=== PATIENT | male | born 1950 | race Caucasian/White ===

== ENCOUNTER 2021-11-17 15:48 | Emergency (ER) | payer OTHER, SELFPAY ==
[2021-11-17] VITALS (11 sets, daily range): BP systolic 115–125; BP diastolic 61–71; PULSE 80–86; RESP 12–44; TEMP 37.1; O2SAT 81–95; BMI 83.2; BMI 39.7
--- NOTE | 2021-11-17 16:14 | EKG12_ITS ---
Test Reason : SOB Blood Pressure : / mmHG Vent. Rate : 083 BPM Atrial Rate : 083 BPM P-R Int : 154 ms QRS Dur : 088 ms QT Int : 390 ms P-R-T Axes : 041 048 086 degrees QTc Int : 458 ms Normal sinus rhythm ST & T wave abnormality, consider inferolateral ischemia Abnormal ECG Confirmed by KARISHMA JAMES, IVANA ([id number]), sports editor LANETTE OROZCO ([id number]) on 11/19/2021 1:16:57 PM Referred By: CLAY DAWN Confirmed By:IVANA SCHWARZ MD
--- NOTE | 2021-11-17 16:15 | RAD_ITS ---
STUDY: X-RAY CHEST REASON FOR EXAM: Male, 71 years old. chest pain TECHNIQUE: Frontal view COMPARISON: None. FINDINGS: There is moderate right perihilar alveolar infiltrate extending throughout the right middle lobe and silhouetting the right heart border. There are subtle linear densities in the right costophrenic sulcus and in the lower left lung question Delores B lines related to early or mild CHF. There is no evidence of pleural effusion.. Mild cardiomegaly Normal mediastinum and yancy. Normal visualized pulmonary arteries. Normal visualized aortic arch and descending thoracic aorta. Normal visualized thoracic spine. Normal visualized ribs, clavicles, and shoulders. There is no demonstrated abnormality of the visualized soft tissue structures of the upper abdomen. RAD/Chest 1 View (Portable) IMPRESSION: Extensive pneumonitis right middle lobe. Given its alveolar appearance this is likely due to bacterial pneumonitis. Mild cardiomegaly. Subtle horizontally oriented linear densities right lateral costophrenic angle and left lower lung. Question Delores B lines related to early or mild CHF. Electronically Signed: Erik Salomon MD, ZAIDA at 16:50 EDT ,
--- NOTE | 2021-11-17 16:15 | ED.VIS.DYS ---
HPI History of Present Illness Chief Complaint: Shortness of Breath Narrative Narrative: 71-year-old male with history of hypertension, hyperlipidemia, diabetes presenting with shortness of breath and cough. Apparently this started yesterday. patient admits to recent NSTEMI and was admitted to [facility]. He states he had a cardiac catheterization there and did not require any stents. He states that he has had some aching on the left side of his chest sporadically since then. Patient states that this occurred at the beginning of September. Patient has been home since then. He expresses he has difficulty sleeping due to shortness of breath and cough. He has dyspnea on exertion. He is sleeping in a chair in the upright position. He has bilateral lower extremity edema. He denies any history of congestive heart failure. [facility] Medical History Anemia CAD (coronary artery disease) Diabetes mellitus, type 2 Gout Hyperlipidemia Hypertension Non-STEMI (non-ST elevated myocardial infarction) Stage 3 chronic kidney disease Home Medications allopurinol 100 mg PO DAILY 11/17/21 [History Last Taken Unknown] amlodipine 10 mg PO DAILY 11/17/21 [History Last Taken Unknown] aspirin [Aspirin Low Dose] 81 mg PO DAILY 11/17/21 [History Last Taken Unknown] atorvastatin 80 mg PO QHS 11/17/21 [History Last Taken Unknown] carvedilol 25 mg PO BID 11/17/21 [History Last Taken Unknown] cholecalciferol (vitamin D3) [Vitamin D3] 50 mcg PO DAILY 11/17/21 [History Last Taken Unknown] docusate sodium 100 mg PO BID 11/17/21 [History Last Taken Unknown] hydralazine 50 mg PO TID 11/17/21 [History Last Taken Unknown] Allergy/AdvReac Type Severity Reaction Status Date / Time No Known Allergies Allergy Verified 11/17/21 15:51 Social History Smoking Status: Never smoker ROS ROS ED Constitutional Constitutional ED: Denies chills or fever(s) Eyes Eyes: Denies blurry vision or diplopia ENT ENT ED: Denies rhinorrhea or sore throat Cardiovascular Cardiovascular: Denies chest pain Respiratory/Chest Respiratory/Chest: Reports cough, dyspnea and dyspnea on exertion Gastrointestinal Gastrointestinal: Denies abdominal pain, nausea or vomiting Genitourinary Genitourinary ED: Denies dysuria Musculoskeletal Musculoskeletal: Denies arthralgias or myalgias Integumentary Denies rash Neurologic Neurologic: Denies headache(s) Psychiatric Psychiatric: Denies anxiety or depression Endocrine Endocrinology: Denies polydipsia or polyuria EXAM Physical Exam Const Vital Signs: 11/17/21 15:49 11/17/21 15:52 11/17/21 15:58 Temperature 98.7 F Temperature Source Temporal Pulse Rate 85 Respiratory Rate 20 H Respiratory Effort Short of Breath Respiratory Pattern Tachypnea Blood Pressure 115/61 Blood Pressure Mean 79 Pulse Ox 88 88 Oxygen Delivery Method Room Air Nasal Cannula Room Air Oxygen Flow Rate (L/min) 5 Fraction of Inspired Oxygen (FIO2) 11/17/21 16:10 11/17/21 16:14 11/17/21 16:15 Temperature Temperature Source Pulse Rate Respiratory Rate 30 H Respiratory Effort Respiratory Pattern Blood Pressure Blood Pressure Mean Pulse Ox 90 95 94 Oxygen Delivery Method Nasal Cannula Non-Rebreather Non-Rebreather Oxygen Flow Rate (L/min) 6 15 15 Fraction of Inspired Oxygen (FIO2) 11/17/21 16:28 11/17/21 16:48 11/17/21 17:00 Temperature Temperature Source Pulse Rate 86 83 Respiratory Rate 44 H Respiratory Effort Respiratory Pattern Blood Pressure 115/69 Blood Pressure Mean Pulse Ox 90 95 Oxygen Delivery Method Non-Rebreather Oxygen Flow Rate (L/min) 15 Fraction of Inspired Oxygen (FIO2) 60 11/17/21 17:44 11/17/21 17:50 11/17/21 18:17 Temperature Temperature Source Pulse Rate 81 80 Respiratory Rate 42 H 18 Respiratory Effort Respiratory Pattern Blood Pressure 125/71 H 116/71 Blood Pressure Mean 89 86 Pulse Ox 90 95 Oxygen Delivery Method Bi-pap Bi-pap Oxygen Flow Rate (L/min) Fraction of Inspired Oxygen (FIO2) 70 Positive well nourished General Appearance ED: NAD HEENT Reports moist mucous membranes atraumatic Eyes PERRL and EOMs intact bilaterally Neck no lymphadenopathy and supple Resp Auscultation: rales diffuse and rhonchi throughout GI non-tender Palpation: soft Back/Spine normal to inspection Extremity General Extremety ED: Yes edema; Negative for tenderness General Extremity: edema Neuro oriented x3 and CN's II-XII intact bilaterally Sensorium / Orientation: alert Psych mental status grossly normal Thought Process: normal thought process Skin Lesions: no lesions Rashes: no rashes MDM MDM MDM Narrative Medical decision making narrative: 71-year-old male with recent history of NSTEMI in early: Was seen at [facility]. He had a cardiac catheterization while he was there which showed LMCA with mild diffuse disease, LAD mild to moderate diffusely diseased, diagonal 1 with severe diffusely diseased, diagonal 2 moderate to severe diffusely diseased, left circumflex mild diffuse tenderness and is RCA proximal is occluded with [id number] collaterals. The patient reports that they were unable to place any stents because the vessels were too small. It was noted that his was 1.19 on admission and then had gone up to 1.54 412.22. Subsequently this was checked on 10/07/2021 and it was 1.26. The patient's hemoglobin on 10/01/2021 was 9.3 and today is 10.1. Platelets are normal under 7. Patient has a leukocytosis of 14.6 and reports a cough and shortness of breath as well as chills. On exam he does have a rales and rhonchi without wheezing. This appears to be worse on exam on the left however on his chest x-ray it does appear to be he has mild to moderate CHF and some Grace B lines on my interpretation. There is also a right middle lobe pneumonitis and the radiologist read this is likely bacterial. Because he is tachypneic and hypoxic I did order blood cultures, urine, urine cultures which are pending currently. Patient was started on vancomycin and Zosyn to cover him for hospital-acquired pneumonia. In addition to this he was given 40 mg of IV Lasix and Nitropaste and placed on BiPAP because his oxygen kept dropping to the low 80s even on 15 L. He feels improved on BiPAP and actually his cough is actually improved. The patient's EKG on my interpretation shows a sinus rhythm with a ventricular of [address]-T wave changes. There is no comparison EKG as the patient has not been here before. I spoke with Dr. Baeza who felt the patient was very complex and would likely need to be transported back to [facility]. He did recommend a heparin drip. Patient also given aspirin 324 mg. I spoke with the extractor machine operator at [facility]. He discussed the case with his attending Dr. Mijares who accepted admission to the CICU. Patient reevaluated at 1830 and is doing well. [facility] to transport and so there is a delay in care. We are currently trying to outsource another ambulance. Patient reevaluated at 1900. He is currently leaving the emergency room towards [facility]. His BNP did come back at 1094. He was already given Lasix. Patient's lactic acid 2.2. Patient stable for transport. Impression: 1. New onset CHF 2. Hospital-acquired pneumonia 3. Sepsis 4. NSTEMI 5. FAYE Lab Data Attestation: I reviewed the patient's lab results. Labs: Laboratory Results - last 24 hr 11/17/21 11/17/21 11/17/21 16:05 16:05 16:05 WBC 14.6 H RBC 3.13 L Hgb 10.1 L Hct 30.0 L MCV 95.8 H MCH 32.3 H MCHC 33.7 RDW Std Deviation 49.9 H RDW Coeff of Avila 14.5 Plt Count 307 MPV 10.7 Immature Gran % (Auto) 0.500 Neut % (Auto) 83.4 H Lymph % (Auto) 3.7 L [place] % (Auto) 12.2 H Eos % (Auto) 0.0 Baso % (Auto) 0.2 Absolute Neuts (auto) 12.1 H Absolute Lymphs (auto) 0.54 L Nucleated RBC % 0 Differential Comment SEE COMMENTS Diff Path Review May foll Platelet Estimate ADEQUATE RBC Morphology N CHROM Anisocytosis 1+ Macrocytosis 1+ PT INR APTT Sodium 140 Potassium 4.1 Chloride 109 H Carbon Dioxide 21.0 Anion Gap 10 BUN 35 H Creatinine 1.66 H Estim Creat Clear Calc 34.67 Est GFR (MDRD) Af Amer 53 L Est GFR (MDRD) Non-Af 44 L BUN/Creatinine Ratio 21.1 H Glucose 173 H Lactic Acid Calcium 9.6 Troponin I High Sens 7114 H* B-Natriuretic Peptide 1094.7 H TSH 0.77 Urine Color Urine Clarity Urine pH Ur Specific [place] Urine Protein Urine Glucose (UA) Urine Ketones Urine Occult Blood Urine Nitrite Urine Bilirubin Urine Urobilinogen Ur Leukocyte Esterase Urine RBC Urine WBC Ur Squamous Epith Cells Urine Bacteria Urine Mucus 11/17/21 11/17/21 11/17/21 17:25 18:30 Unknown WBC RBC Hgb Hct MCV MCH MCHC RDW Std Deviation RDW Coeff of [place]ila Plt Count MPV Immature Gran % (Auto) Neut % (Auto) Lymph % (Auto) [place] % (Auto) Eos % (Auto) Baso % (Auto) Absolute Neuts (auto) Absolute Lymphs (auto) Nucleated RBC % Differential Comment Diff Path Review Platelet Estimate RBC Morphology Anisocytosis Macrocytosis PT 15.3 H INR 1.2 APTT 34.6 Sodium Potassium Chloride Carbon Dioxide Anion Gap BUN Creatinine Estim Creat Clear Calc Est GFR (MDRD) Af Amer Est GFR (MDRD) Non-Af BUN/Creatinine Ratio Glucose Lactic Acid 2.2 H* Calcium Troponin I High Sens B-Natriuretic Peptide TSH Urine Color Straw Urine Clarity Clear Urine pH 6.0 Ur Specific [place] 1.010 Urine Protein Negative Urine Glucose (UA) Normal Urine Ketones Negative Urine Occult Blood Negative Urine Nitrite Negative Urine Bilirubin Negative Urine Urobilinogen Normal Ur Leukocyte Esterase Negative Urine RBC 0 SEEN Urine WBC 0 SEEN Ur Squamous Epith Cells 0 SEEN Urine Bacteria 0 SEEN Urine Mucus 0 SEEN Radiography Diagnostic Testing: Clinical Impression(s) from Imaging Studies Chest X-Ray 11/17/21 16:15 IMPRESSION: Extensive pneumonitis right middle lobe. Given its alveolar appearance this is likely due to bacterial pneumonitis. Mild cardiomegaly. Subtle horizontally oriented linear densities right lateral costophrenic angle and left lower lung. Question Delores B lines related to early or mild CHF. Electronically Signed: Erik Salomon MD, ZAIDA at 16:50 EDT Reading Location ID and State: [facility] / ID Tel , Service support , Discharge Plan Triage Chief Complaint: Shortness of Breath ED Provider: Harsha Garcia Dx/Rx/DC Orders Prescriptions: No Action atorvastatin 80 mg tablet 80 mg PO QHS RF: 0 carvedilol 25 mg tablet 25 mg PO BID RF: 0 allopurinol 100 mg tablet 100 mg PO DAILY RF: 0 aspirin [Aspirin Low Dose] 81 mg tablet,delayed release (DR/EC) 81 mg PO DAILY RF: 0 amlodipine 10 mg tablet 10 mg PO DAILY RF: 0 docusate sodium 100 mg capsule 100 mg PO BID RF: 0 hydralazine 50 mg Tablet 50 mg PO TID RF: 0 cholecalciferol (vitamin D3) [Vitamin D3] 50 mcg (2,000 unit) Tablet 50 mcg PO DAILY RF: 0 Primary Care Provider: Armand Rivers
[2021-11-17] MEDS: Nitroglycerin Oint 1 INCH PACKET TD (16:28)
[2021-11-17] MEDS: Furosemide 40 MG/4 ML Vial IV (16:28)
[2021-11-17 16:42] LABS: Absolute Lymphocyte Count 0.54 X10^3/uL (0.83-4.51); Absolute Neutrophil Count 12.1 X10^3/uL (2.0-7.7); Basophil# 0.03 X10^3/uL; Basophil% 0.2 % (0-1); Hemoglobin 10.1 g/dL (13.0-16.5); Lymphocyte # 0.54 X10^3/ul (0.83-4.51); Lymphocyte % 3.7 % (19-41); Mean Corp Hgb Conc 33.7 g/dL (32-36); Mean Corpuscular Hgb 32.3 pg (27.0-32.0); Mean Corpuscular Volume 95.8 fL (80-94); Mean Platelet Vol. 10.7 fl (6.2-12.0); Monocyte# 1.77 X10^3/uL; Monocyte% 12.2 % (0-10); NRBC Flagged by Analyzer 0 % (0-5); Neutrophil # 12.14 X10^3/uL (2.7-7.7); Neutrophil % 83.4 % (47-70); POSITIVE DIFFERENTIAL YES; Platelet Count 307 K/mm3 (150-450); RBC Distribution Width CV 14.5 % (11.6-14.6); RBC Distribution Width SD 49.9 fl (35.1-43.9); Red Blood Count 3.13 M/mm3 (4.6-6.2); White Blood Count 14.6 K/mm3 (4.4-11.0)
[2021-11-17 16:46] LABS: Differential Indicated SCAN CRITERIA MET
[2021-11-17 16:53] LABS: Anion Gap 10 (5-15); BUN 35 mg/dL (7-18); BUN/Creat Ratio 21.1 RATIO (10-20); Calcium,Total 9.6 mg/dL (8.5-10.1); Chloride 109 mmol/L (98-107); Creatinine, Serum 1.66 mg/dL (0.70-1.30); EST Glomerular Filtration Rate 44 mL/min (>60); Est Glom Filt Rate - Afr Amer 53 mL/min (>60); Estimated Creatinine Clearance 34.67 ml/min; Glucose 173 mg/dL (74-106); Potassium 4.1 mmol/L (3.5-5.1); Sodium Level 140 mmol/L (136-145); Thyroid Stim Hormone (TSH) 0.77 uIU/mL (0.358-3.74); Troponin-I HS (w/2H Reflex) 7114 pg/mL (3.0-78.0)
[2021-11-17 17:16] LABS: Differential Comment SEE COMMENTS
[2021-11-17 17:17] LABS: Platelet Estimate ADEQUATE (ADEQ)
[2021-11-17 17:19] LABS: Anisocytosis 1+; Macrocytosis 1+; Red Cell Morphology N CHROM NORMAL (NORM C&C)
--- NOTE | 2021-11-17 17:19 | NURSING ---
CALLED [facility] FOR TRANSFER. TALKED TO HOOD
--- NOTE | 2021-11-17 17:25 | NURSING ---
NO OLD EKGS
[2021-11-17] MEDS: Aspirin 81 MG TAB.CHEW 324 MG PO (17:35)
--- NOTE | 2021-11-17 17:37 | NURSING ---
[facility] CARDIOLOGY FOR DR DAWN
[2021-11-17 17:49] LABS: International Normalized Ratio 1.2; Prothrombin Time (Protime)PT. 15.3 SECONDS (11.7-14.9)
[2021-11-17 17:50] LABS: Partial Thromboplast Time 34.6 Seconds (24.1-36.2)
[2021-11-17] MEDS: HEPARIN/D5w 25,000 UNITS 25,000 UNITS/250 ML IV.SOLN. 15 UNITS CONT INF (18:09)
--- NOTE | 2021-11-17 18:15 | NURSING ---
[facility] NURSE TO NURSE [phone]
[2021-11-17 18:20] LABS: Reflex Troponin-HS? (from REC) Y
[2021-11-17 18:36] LABS: BNP,B-Type NATRIURETIC PEPTIDE 1094.7 pg/mL (0-100)
[2021-11-17 18:44] LABS: Bacteria 0 SEEN /hpf (None Seen); Mucous, Urine 0 SEEN /hpf (<or=2+); Red Blood Cells-Urine 0 SEEN /hpf (0-5); Squamous Epithelial Cells - UA 0 SEEN /hpf (0-5); White Blood Cells 0 SEEN /hpf (0-5)
[2021-11-17 18:46] LABS: Color, Urine Straw (Yellow); Glucose, Dipstick Normal (Normal); Ketone-Dipstick Negative (Negative); Leukocyte Esterase-Dipstick Negative /ul (Negative); Nitrite-Dipstick Negative (Negative); Occult Blood-Urine Negative /ul (Negative); Protein-Dipstick Negative (Negative); Urine Bilirubin Dipstick Negative (Negative); Urine Clarity Clear (Clear); Urine Urobilinogen Normal (Normal)
--- NOTE | 2021-11-17 19:00 | ED.RN ---
notified Dr Garcia of critical Lactic of 2.2
[2021-11-17 19:11] LABS: Troponin-I HS 7085 pg/mL (3.0-78.0)
[2021-11-17 21:32] LABS: Reflex Lactate? Y
[2021-11-17 23:16] LABS: Lactic Acid 2.2 mmol/L (0.4-1.9)
[2021-11-19 11:49] LABS: Pathologist Review Reviewed
== END 2021-11-17 19:30 | disposition short-term general hospital (02) ==
PROVIDERS: Emergency Provider Student in an Organized Health Care Education/Training Program; PCP Internal Medicine; Visit Provider Student in an Organized Health Care Education/Training Program
DX: A41.9 Sepsis, unspecified organism (principal); N17.9 Acute kidney failure, unspecified; I50.9 Heart failure, unspecified; E11.22 Type 2 diabetes mellitus with diabetic chronic kidney disease; N18.30 Chronic kidney disease, stage 3 unspecified; J18.9 Pneumonia, unspecified organism; E78.5 Hyperlipidemia, unspecified; I12.9 Hypertensive chronic kidney disease with stage 1 through stage 4 chronic kidney disease, or unspecified chronic kidney disease; I66.02 Occlusion and stenosis of left middle cerebral artery; I25.10 Atherosclerotic heart disease of native coronary artery without angina pectoris; I25.2 Old myocardial infarction; R06.02 Shortness of breath
CPT/HCPCS: 71045; 80048; 81001; 83605; 83880; 84443; 84484; 85025; 85610; 85730; 87040; 87086; 87088; 87186; 87428; 93005; 94002; 99283; J7040; A4216; J1940